=== PATIENT | female | born 2000 | race Caucasian/White ===

== ENCOUNTER → 2019-11-23 06:27 | Outpatient (BNVA) | payer SELFPAY | PROVIDERS: Visit Provider Registered Nurse | DX: R50.9 Fever, unspecified (principal); R68.89 Other general symptoms and signs; E86.0 Dehydration; R06.02 Shortness of breath | CPT/HCPCS: 81000; 87081; 87400; 87880 ==

== ENCOUNTER 2019-11-24 06:15 | Emergency (ER) | payer SELFPAY ==
[2019-11-24 06:22] VITALS: BP 133/83; PULSE 154; RESP 16; TEMP 38.1; O2SAT 100; BMI 18.6
--- NOTE | 2019-11-24 06:25 | XR_ITS ---
WS: [id number] PORTABLE CHEST HISTORY: dyspnea/cough COMPARISON: None available. Lungs are clear and well expanded. No pleural effusion or pneumothorax. Cardiac size: Normal. Mediastinum/Aorta: Normal mediastinum. No osseous abnormality seen. XR/XR chest 1V portable [id number] IMPRESSION: Unremarkable portable chest.
--- NOTE | 2019-11-24 06:26 | CTR_ITS ---
PROCEDURE INFORMATION: Exam: CT Abdomen And Pelvis With Contrast Exam date and time: 11/24/2019 7:04 AM Age: 19 years old Clinical indication: Abdominal pain; Generalized; Additional info: Abdominal pain - lower abd pain x 1 wk with nausea and diarrhea TECHNIQUE: Imaging protocol: Computed tomography of the abdomen and pelvis with intravenous contrast. Total DLP: 533.14 mGy-cm Radiation optimization: All CT scans at this facility use at least one of these dose optimization techniques: automated exposure control; mA and/or kV adjustment per patient size (includes targeted exams where dose is matched to clinical indication); or iterative reconstruction. Contrast material: Omnipaque 300; Contrast volume: 95 ml; Contrast route: IV; COMPARISON: No relevant prior studies available. FINDINGS: Liver: Mild periportal hypoattenuation. Gallbladder and bile ducts: Mild pericholecystic fluid with otherwise normal gallbladder. No gallstones identified. Pancreas: Normal. No ductal dilation. Spleen: Normal. No splenomegaly. Adrenals: Normal. No mass. Kidneys and ureters: See Stomach and bowel finding. Stomach and bowel: Mild wall thickening of the ascending and proximal transverse colon. There is a dilated early opacifying left gonadal vein. Left parauterine vascular collaterals are present also supplying right parauterine collaterals. Appendix: The vermiform appendix is normal. Intraperitoneal space: Mild Morison pouch peritoneal fluid. Nonspecific mild posterior pelvic peritoneal fluid. Vasculature: Unremarkable. No abdominal aortic aneurysm. Lymph nodes: No enlarged lymph nodes. Bladder: The urinary bladder is decompressed and difficult to assess. Reproductive: Left ovarian 2.7 mm lesion containing fat density. Left ovarian 1.8 mm physiologic follicle. Bones/joints: Unremarkable. No acute fracture. Soft tissues: Unremarkable. CT/CT abdomen pelvis w con* [id number] IMPRESSION: 1. Mild wall thickening of the ascending and proximal transverse colon. The finding is consistent with mild nonspecific colitis. Clinical correlation with the patient's specific symptomatology is recommended. 2. Mild periportal hypoattenuation. Differential diagnosis includes acute hepatitis, hypoproteinemia, elevated central venous pressure, bacteremia, recent crystalloid administration and other etiologies. Clinical correlation is recommended. 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 4. Nonspecific mild posterior pelvic peritoneal fluid. 5. 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 Radiation Dose CTDIVOL = (mGy): DLP = 533.14 (mGy-cm)
[2019-11-24 06:50] LABS: Add Urine Microscopic? NO
--- NOTE | 2019-11-24 06:52 | ED_ITS ---
HPI - Abdominal Pain General: Chief Complaint: Abdominal Pain Stated Complaint: temp, fever, cough Time Seen by Provider: 11/24/19 06:25 History of Present Illness: HPI narrative: 19-year-old female presents emergency room with abdominal pain and fever. She also been tachycardic. She was seen by an MEDICAL RECORD CODER in an outlying clinic and given fluids flu swab and urine yesterday all of those were negative per her report. That called ahead concerned about the patient and verbally reported those results as well to the nursing staff. When on arrival patient is complaining of right lower quadrant abdominal pain she relates again about 2-1/2 to 3 days ago was initially periumbilical migrated to the right lower quadrant. Patient denies dysuria urgency or frequency she did have a few loose stools initially she denies any hematochezia melena hematemesis or coffee-ground emesis. Associated Symptoms: Denies bloating, chills, coffee ground emesis, constipation, diarrhea, dysuria, fever(s), hematochezia, hematemesis, melena, nausea and vomiting Review of Systems Const: Denies: fever, chills, body aches, change in appetite, fatigue or malaise ENMT: Denies: throat pain, ear pain, nasal discharge or nasal congestion Card: Denies: chest pain, edema, shortness of breath on exertion or shortness of breath when lying down Resp: Denies: shortness of breath, productive cough or non-productive cough GI: Denies: abdominal pain, nausea, vomiting, vomiting blood, coffee grounds in vomit, diarrhea, constipation, bloating, blood in stool or black tarry stool : Denies: flank pain, difficulty urinating, painful urination, urinary fr equency or urinary urgency Skin/Breast: Denies: rash or itching PFSH ED PFSH: Social History Smoking and tobacco status: never smoked Physical Exam Const: COMMON NORMALS: no apparent distress GENERAL APPEARANCE: cooperative and comfortable ORIENTATION/CONSCIOUSNESS: Yes awake, Yes oriented to person, Yes oriented to place and Yes oriented to time HENMT: COMMON NORMALS: normocephalic, head/scalp atraumatic, hearing grossly normal bilaterally, external ears normal, EAC's normal, TM's normal bilaterally, nasal mucous membranes and turbinates normal, moist oral mucous membranes and oropharynx normal HEAD & SCALP: normocephalic and atraumatic NOSE: nasal mucous membranes and turbinates normal EXTERNAL EAR: Yes external ears normal EXTERNAL AUDITORY CANAL: EAC's normal TYMPANIC MEMBRANE: TM's normal bilaterally Eye: COMMON NORMALS: PERRL, EOMs intact bilaterally, conjunctivae normal and n o scleral icterus CONJUNCTIVA: Yes conjunctivae normal PUPIL: Yes PERRL Neck/C-Spine: COMMON NORMALS: full ROM, no lymphadenopathy, supple and no JVD Lymph: LYMPHATIC: no lymphadenopathy noted and no lymphedema noted Resp: COMMON NORMALS: normal respiratory effort, no retractions, no use of accessory muscles and clear to auscultation bilaterally AUSCULTATION: clear to auscultation bilaterally Cardio: COMMON NORMALS: no JVD, regular rate, regular rhythm and no murmurs RATE: regular rate RHYTHM: regular rhythm GI: COMMON NORMALS: soft to palpation and no hepatosplenomegaly AUSCULTATION: Yes normoactive bowel sounds PALPATION: Yes soft, No tender, No guarding and Yes no hepatosplenomegaly Extremity: COMMON NORMALS: normal to inspection, normal capillary refill, no clubbing, cyanosis or edema, no calf tenderness and no pedal edema Neuro: SENSORIUM/ORIENTATION: Yes oriented to person, Yes oriented to place and Yes oriented to time Skin: COMMON NORMALS: no rashes or lesions noted GENERAL SKIN EXAM: no rashes or lesions noted Course Vital Signs: Vital signs: Vital Signs Temperature 100.6 F H 11/24/19 06:22 Pulse Rate 105 H 11/24/19 10:07 Respiratory Rate 17 11/24/19 10:07 Blood Pressure 119/60 11/24/19 10:07 Pulse Oximetry 98 11/24/19 10:07 MDM - Abdominal Pain MDM Narrative: Medical decision making narrative: CT shows nonspecific colitis. Patient is not had any bloody stools is not recently been on antibiotics. At this point fluids seem to have helped quite a bit working to go ahead and discharge home Tylenol or ibuprofen for her fever recommend clear liquid diet and advance over the next 24 to 48 hours if worsening or change sy mptoms or begin to bloody diarrhea return Lab Data: Labs: Lab Results 11/24/19 11/24/19 11/24/19 Range/Units 06:30 06:42 06:42 WBC 9.6 (4.5-13.0) 10^3/ uL RBC 4.90 (4.1-5.3) 10^6/u L Hgb 13.0 (11.5-15.3) g/dL Hct 40.5 (37.0-47.0) % MCV 82.7 (81-99) fL MCH 26.5 L (28.0-34.0) pg MCHC 32.1 (30.0-36.0) g/dL RDW 12.7 (12.1-15.1) % Plt Count 162 (130-400) 10^3/c mm MPV 9.9 (7.4-10.4) fL Neut % (Auto) 82.4 % Lymph % (Auto) 6.6 % [place] % (Auto) 10.6 % Eos % (Auto) 0.0 % Baso % (Auto) 0.3 % Neut # (Auto) 7.9 (1.8-8.0) 10^3/u L Lymph # (Auto) 0.6 L (1.5-6.5) 10^3/u L [place] # (Auto) 1.0 H (0.2-0.9) 10^3/u L Eos # (Auto) 0.0 (0.0-0.8) 10^3/u L Baso # (Auto) 0.0 (0.0-0.1) 10^3/u L Nucleated RBC % (a uto) 0 % Nucleated RBCs # 0.0 /100WBC Sodium 136 (136-145) mmol/L Potassium 3.6 (3.5-5.1) mmol/L Chloride 99 (98-107) mmol/L Carbon Dioxide 22 (22-29) mmol/L Anion Gap 18.6 (5-19) BUN 11 (6-20) mg/dL Creatinine 0.7 (0.5-0.9) mg/dL GFR Calculation 106.7 (90-130) mL/min Glucose 96 (65-115) mg/dL Calculated Osmolal ity 278 L (285-295) mOsm/k g Calcium 9.5 (8.5-10.5) mg/dL Total Bilirubin 0.4 (0.15-1.2) mg/dL AST 14 (0-32) U/L ALT 9 (0-33) U/L Alkaline Phosphata se 93 (35-105) IU/L Total Protein 7.8 (6.6-8.7) g/dL Albumin 4.4 (3.5-5.2) g/dL Globulin 3.4 (1.3-4.6) g/dL Lipase 16 (13-60) U/L HCG, Qual (Negative) Urine Color (Yellow) Urine Appearance (CLEAR) Urine pH (5-7) Ur Specific Gravit y (1.005-1.030) Urine Protein (Negative) Urine Glucose (UA) (Normal) Urine Ketones (Negative) Urine Blood (Negative) Urine Nitrate (Negative) Urine Bilirubin (NEGATIVE) Urine Urobilinogen (Negative) mg/dL Ur Leukocyte [place] (Negative) Influenza Type A A g Negative (Negative) POC Influenza B Ag Negative (Negative) 11/24/19 11/24/19 Range/Units 06:45 06:45 WBC (4.5-13.0) 10^3/ uL RBC (4.1-5.3) 10^6/u L Hgb (11.5-15.3) g/dL Hct (37.0-47.0) % MCV (81-99) fL MCH (28.0-34.0) pg MCHC (30.0-36.0) g/dL RDW (12.1-15.1) % Plt Count (130-400) 10^3/c mm MPV (7.4-10.4) fL Neut % (Auto) % Lymph % (Auto) % [place] % (Auto) % Eos % (Auto) % Baso % (Auto) % Neut # (Auto) (1.8-8.0) 10^3/u L Lymph # (Auto) (1.5-6.5) 10^3/u L [place] # (Auto) (0.2-0.9) 10^3/u L Eos # (Auto) (0.0-0.8) 10^3/u L Baso # (Auto) (0.0-0.1) 10^3/u L Nucleated RBC % (a uto) % Nucleated RBCs # /100WBC Sodium (136-145) mmol/L Potassium (3.5-5.1) mmol/L Chloride (98-107) mmol/L Carbon Dioxide (22-29) mmol/L Anion Gap (5-19) BUN (6-20) mg/dL Creatinine (0.5-0.9) mg/dL GFR Calculation (90-130) mL/min Glucose (65-115) mg/dL Calculated Osmolal ity (285-295) mOsm/k g Calcium (8.5-10.5) mg/dL Total Bilirubin (0.15-1.2) mg/dL AST (0-32) U/L ALT (0-33) U/L Alkaline Phosphata se (35-105) IU/L Total Protein (6.6-8.7) g/dL Albumin (3.5-5.2) g/dL Globulin (1.3-4.6) g/dL Lipase (13-60) U/L HCG, Qual Negative (Negative) Urine Color Yellow (Yellow) Urine Appearance Clear (CLEAR) Urine pH 5 (5-7) Ur Specific Gravit y 1.015 (1.005-1.030) Urine Protein Neg (Negative) Urine Glucose (UA) Norm (Normal) Urine Ketones 2+ H (Negative) Urine Blood Neg (Negative) Urine Nitrate Negative (Negative) Urine Bilirubin Neg (NEGATIVE) Urine Urobilinogen Norm (Negative) mg/dL Ur Leukocyte [place] Negative (Negative) Influenza Type A A g (Negative) POC Influenza B Ag (Negative) Discharge Plan Discharge Patient Disposition: Home, Self-Care Clinical Impression: Colitis Condition: Stable Prescriptions: New hydrocodone-acetaminophen 5-325 mg tablet 1 tab PO Q6H PRN (Reason: pain) Qty: 15 RF: 0 Zofran 4 mg tablet 4 mg PO Q6H PRN (Reason: nausea and vomiting) Qty: 15 RF: 0 No Action sodium chloride 0.9 % Parenteral Solution 0.09 % IVP ONCE Qty: 1000 RF: 0 Discharge Orders: Discharge Order (Routine); Ordered 11/24/19 Ordered By: Marc Quiros Discharge Diet: Clear Liquid Discharge Activity: Increase activity as tolerated Patient Instructions: Ulcerative Colitis (ED) Discharge Date/Time: 11/24/19 10:08 Coding Level of Care Code ED Residential Living Assistant for Henrryg Alisha
[2019-11-24 06:54] LABS: Basophils % 0.3 %; Hematocrit 40.5 % (37.0-47.0); Lymphocytes # 0.6 10^3/uL (1.5-6.5); Lymphocytes % 6.6 %; Mean Corpuscular HGB Conc 32.1 g/dL (30.0-36.0); Mean Corpuscular Hemoglobin 26.5 pg (28.0-34.0); Mean Corpuscular Volume 82.7 fL (81-99); Mean Platelet Volume 9.9 fL (7.4-10.4); Monocytes % 10.6 %; Neutrophils # 7.9 10^3/uL (1.8-8.0); Neutrophils % 82.4 %; Nucleated Red Blood Cells % 0 %; Platelet Count 162 10^3/cmm (130-400); Red Cell Distribution Width 12.7 % (12.1-15.1); White Blood Count 9.6 10^3/uL (4.5-13.0)
[2019-11-24 06:58] LABS: HCG Qualitative Urine. Negative (Negative)
[2019-11-24] MEDS: sodium chloride 0.9% 1,000 ML 999 ML IV ×2 (07:06→08:02)
[2019-11-24] MEDS: ondansetron 2 mg/ML SDV 2 mL 4 MG IVP ×2 (07:06→09:38)
[2019-11-24 07:08] LABS: Alanine Aminotransferase 9 U/L (0-33); Albumin Level 4.4 g/dL (3.5-5.2); Alkaline Phosphatase 93 IU/L (35-105); Anion Gap 18.6 (5-19); Aspartate Amino Transferase 14 U/L (0-32); Blood Urea Nitrogen 11 mg/dL (6-20); Calcium 9.5 mg/dL (8.5-10.5); Carbon Dioxide 22 mmol/L (22-29); Chloride 99 mmol/L (98-107); Creatinine Clr Calc Pharmacy 114.2343; Globulin 3.4 g/dL (1.3-4.6); Glomerular Filtration Rate 106.7 mL/min (90-130); Glucose 96 mg/dL (65-115); Lipase 16 U/L (13-60); Osmolality Calculated 278 mOsm/kg (285-295); Potassium 3.6 mmol/L (3.5-5.1); Sodium 136 mmol/L (136-145); Total Bilirubin 0.4 mg/dL (0.15-1.2); Total Protein 7.8 g/dL (6.6-8.7)
[2019-11-24 07:08] LABS: Urine Appearance Clear (CLEAR); Urine Color Yellow (Yellow)
[2019-11-24 07:09] LABS: Bilirubin Urine Neg (NEGATIVE); Blood Urine Neg (Negative); Glucose Urine UA Norm (Normal); Ketones Urine 2+ (Negative); Leukocyte Esterase Urine Negative (Negative); Nitrate Urine Negative (Negative); Protein Urine Neg (Negative); Specific Gravity, Urine 1.015 (1.005-1.030); Urobilinogen Urine Norm (Negative); pH Urine 5 (5-7)
[2019-11-24 07:14] LABS: Influenza A by IFA Negative (Negative); Influenza B by IFA Negative (Negative)
[2019-11-24 08:43] VITALS: BP 119/59; PULSE 118; RESP 16; O2SAT 100
[2019-11-24] MEDS: morphine 4 mg/mL SDV 1 mL IVP (09:38)
[2019-11-24] MEDS: sodium chloride 0.9% 500 ML 999 ML IV (09:38)
[2019-11-24 10:07] VITALS: BP 119/60; PULSE 105; RESP 17; O2SAT 98
[2019-11-24] MEDS: iohexol 300 mg/mL 100 mL Btl IV (10:13)
== END 2019-11-24 10:08 | disposition home or self-care (01) ==
PROVIDERS: Emergency Provider Family Medicine
DX: K52.9 Noninfective gastroenteritis and colitis, unspecified (principal)
CPT/HCPCS: 12345; 36415; 71045; 74177; 80053; 81003; 81025; 83690; 85025; 87040; 87804; 96361; 96374; 96375; 96376; 99282; 99284; J2270; J2405; J7030; J7040; Q9967

== ENCOUNTER 2021-07-30 13:12 | Outpatient (CLI) | payer MEDICAID, SELFPAY ==
--- NOTE | 2021-07-30 13:00 | CT_ITS ---
WS: [id number] CT ABDOMEN AND PELVIS NONCONTRAST HISTORY: K52.9 - Noninfective gastroenteritis and colitis, history of colitis. Intermittent low abdom inal pain. TECHNIQUE: Imaging performed through the abdomen and pelvis. Coronal and sagittal reformats are submi tted. All CT scans at [facility] use at least one of these dose optimization techniques: auto mated exposure control; mA and/or kV adjustment per patient size (includes targeted exams where dose is matched to clinical indication); or iterative reconstruction. DLP: 946.18 mGycm COMPARISON: 11/24/2019 Lower thorax: Lungs are clear. Liver: Normal size liver. No mass or bile duct dilatation. Gallbladder: Mildly contracted gallbladder. No stones identified. Pancreas: Normal size and attenuation. Normal pancreatic duct. No pancreatitis or mass. Spleen: Normal. Adrenal glands: Normal. No mass. Right kidney: Normal size kidney with no mass or hydronephrosis. Left kidney: Normal size kidney with no mass or hydronephrosis. Aorta: Normal abdominal aorta, no aneurysm or atherosclerosis. Difficult evaluation for lymph nodes due to no contrast. GI tract: Only a small portion of the appendix is identified but it does appear normal. No GI tract o bstruction. Previously described wall thickening involving the ascending colon has resolved. There is very mild stranding within the fat deep within the pelvis with an adjacent distal small bowel loop w hich is mildly distended with fluid. Abdominal wall: Negative. No hernia. Pelvis: There is a small amount of free fluid in the pelvis. The amount of free fluid is slightly gre ater than physiologic. This could be related to a ruptured ovarian cyst. Osseous structures: Unremarkable. CT/CT abdomen pelvis wo con [id number] IMPRESSION: 1. Distal small bowel loop with mild fluid distention and adjacent fat strandi ng within the pelvis. Very mild inflammatory bowel disease is likely. 2. Previously described wall thickening of the ascending colon and the adjacen t fluid has resolved. 3. Small amount of free fluid within the pelvis. May be postinflammatory or se condary to ruptured ovarian cyst. 4. The appendix is not visualized in its entirety.
== END 2021-07-30 13:13 | disposition home or self-care (01) ==
PROVIDERS: Visit Provider Registered Nurse
DX: K52.9 Noninfective gastroenteritis and colitis, unspecified (principal)
CPT/HCPCS: 74176

== ENCOUNTER → 2022-01-15 11:58 | Outpatient (BNVA) | payer MEDICAID, SELFPAY | PROVIDERS: Visit Provider Registered Nurse | DX: R44.3 Hallucinations, unspecified (principal); F51.12 Insufficient sleep syndrome; K90.49 Malabsorption due to intolerance, not elsewhere classified | CPT/HCPCS: 80053; 82672; 84144; 84443; 85025; 86003 ==

== ENCOUNTER → 2022-03-05 09:14 | Outpatient (BNVA) | payer MEDICAID, SELFPAY | PROVIDERS: Visit Provider Registered Nurse | DX: Z34.90 Encounter for supervision of normal pregnancy, unspecified, unspecified trimester (principal); R11.10 Vomiting, unspecified | CPT/HCPCS: 84702; 85007; 85027 ==

== ENCOUNTER → 2022-12-01 10:33 | Outpatient (BNVA) | payer MEDICAID, SELFPAY | PROVIDERS: PCP Registered Nurse; Visit Provider Registered Nurse | DX: Z34.90 Encounter for supervision of normal pregnancy, unspecified, unspecified trimester (principal); Z3A.01 Less than 8 weeks gestation of pregnancy | CPT/HCPCS: 81025; 84702 ==

== ENCOUNTER 2023-07-03 08:24 | Oncology outpatient (recurring) (ONCR) | payer MEDICAID, SELFPAY ==
[2023-07-03 11:34] VITALS: BP 120/67; PULSE 93; RESP 16; TEMP 37.1; O2SAT 99
[2023-07-03 11:41] VITALS: BP 120/67; PULSE 93; RESP 16; TEMP 37.1; O2SAT 99
== END 2023-07-30 23:59 | disposition home or self-care (01) ==
PROVIDERS: PCP Registered Nurse; Visit Provider Family Medicine
DX: O26.899 Other specified pregnancy related conditions, unspecified trimester (principal); O36.0990 Maternal care for other rhesus isoimmunization, unspecified trimester, not applicable or unspecified; Z29.13 Encounter for prophylactic Rho(D) immune globulin
CPT/HCPCS: 86850; 86900; 90384

== ENCOUNTER 2023-08-07 21:30 | Inpatient (IN) | payer MEDICAID, SELFPAY ==
[2023-08-07 20:46] VITALS: BP 132/82; PULSE 99
[2023-08-07 21:03] VITALS: BP 116/77; PULSE 106
[2023-08-07 21:16] VITALS: BP 121/84; PULSE 106
[2023-08-07 22:43] LABS: Basophils # 0.1 10^3/uL (0.0-0.1); Basophils % 0.4 %; Eosinophils # 0.1 10^3/uL (0.0-0.8); Eosinophils % 0.5 %; Lymphocytes # 2.2 10^3/uL (0.8-4.8); Lymphocytes % 15.9 %; Mean Corpuscular HGB Conc 30.9 g/dL (30-55); Mean Platelet Volume 10.7 fL (7.4-10.4); Monocytes % 7.3 %; Neutrophils # 10.35 10^3/uL (1.8-7.7); Neutrophils % 74.5 %; Nucleated Red Blood Cells % 0 %; Platelet Count 153 10^3/cmm (157-399); Red Blood Count 4.32 10^6/uL (3.85-5.65); Red Cell Distribution Width 14.4 % (12.1-15.1); White Blood Count 13.88 10^3/uL (3.29-11.43)
[2023-08-07 22:49] VITALS: BMI 28.5
[2023-08-08] VITALS (16 sets, daily range): BP systolic 110–144; BP diastolic 62–92; PULSE 80–105; RESP 16–17; TEMP 36.4–37.6; O2SAT 96–99
--- NOTE | 2023-08-08 01:19 | PM.OPHPUD ---
Labor & Delivery H&P Update Date of Procedure: August 08, 2023 Date H&P Performed: 08/06/23 Changes to previous documentation: Upon presentation to the hospital, her cervix was found to be 5 cm dilated. Admission Diagnosis: 23-year-old 3 para 2-0-0-2 at 40 weeks estimated gestational age presenting in active labor Planned procedure: Vaginal delivery Other information: The patient presented to the hospital having contractions that were happening with increased frequency. The contractions were also gradually becoming more painful. She did not have any rupture of membranes. She had no other significant symptoms. Her had been unremarkable. Her lab work had also been relatively unremarkable. Her blood type is O-. Her antibody screen was negative. Her glucose screen was negative. She is GBS negative. She is rubella nonimmune. The remainder of her infectious disease profile was within normal limits. She did have CMV exposure from her son in the third trimester. According to her lab tests it is probable that she did not have significant infection. Related Problem List Diagnoses (1) 40 weeks gestation of : (2) Active labor at term: A&P Assessment and plan (1) 40 weeks gestation of : I anticipate routine labor and a spontaneous vaginal delivery. The patient has expressed desire that we not give her Pitocin . I discussed with her the benefits of Pitocin given routinely after delivery. She understands that there are risks associated with not taking Pitocin, and would like to avoid taking Pitocin regardless, unless there is substantial bleeding. Status: Acute (2) Active labor at term: Status: Acute
--- NOTE | 2023-08-08 01:55 | P.PCNOB_ITS ---
Delivery Note: Date of delivery: August 08, 2023 Pre-delivery diagnoses: 23-year-old 3 para 2-0-0-2 at 40 weeks estimated gestational age presenting in active labor Post-delivery diagnoses: Status post spontaneous vaginal delivery Procedure: Spontaneous vaginal delivery Delivering Physician: Neymar Blevins Estimated blood loss (mL): 150 Pre-Delivery Course: The patient presented to the hospital in active labor. When she arrived to the hospital, her cervix was found to be 5 cm dilated. She gradually increased to 8 cm dilated, at which point an amniotomy was performed. Within 15 minutes, she w as complete and pushing. Delivery: DELIVERY: The patient progressed to complete without difficulty. She delivered a male with a weight of 8 pounds 8 ounces with Apgars of 8, 9. The baby was delivered from the RAFAEL position and placed on the mother's abdomen. The cord was then clamped and cut. There was no nuchal cord. There was no meconium. The placenta and 3 vessel cord were delivered intact shortly thereafter. The perineum and vaginal vault were carefully examined. No lacerations were noted. Both the mother and the baby were in stable condition. Post-Delivery Status: Good History History History 3 Term 3 Miscarriages/Ectopic Living Children 3 A&P Assessment and plan (1) Spontaneous vaginal delivery: I anticipate routine care. (2) 40 weeks gestation of : Coding Level of Care Code Acute Code for Chg Fwd Diagnoses Spontaneous vaginal delivery O80 40 weeks gestation of Z3A.40
[2023-08-08] MEDS: benzocaine-menthol 78 gm Canister 1 SPRAY TOPICAL (03:09)
[2023-08-08] MEDS: ibuprofen 800 mg tablet PO ×4 (03:09→21:51)
[2023-08-08] MEDS: prenatal vitamin Capsule 1 CAP PO (09:04)
[2023-08-08] MEDS: docusate sodium 100 mg Capsule PO ×2 (09:04→21:51)
[2023-08-08 14:02] LABS: Hematocrit 30.1 % (36-47); Mean Corpuscular HGB Conc 31.2 g/dL (30-55); Mean Corpuscular Hemoglobin 25.2 pg (27-33); Mean Corpuscular Volume 80.7 fl (85-98); Mean Platelet Volume 10.7 fL (7.4-10.4); Platelet Count 134 10^3/cmm (157-399); Red Blood Count 3.73 10^6/uL (3.85-5.65); Red Cell Distribution Width 14.5 % (12.1-15.1); White Blood Count 12.27 10^3/uL (3.29-11.43)
[2023-08-09 05:30] VITALS: BP 104/68; PULSE 85; RESP 14; TEMP 36.7; O2SAT 97
[2023-08-09] MEDS: prenatal vitamin Capsule 1 CAP PO (09:07)
[2023-08-09] MEDS: ibuprofen 800 mg tablet PO (09:07)
[2023-08-09 09:08] VITALS: BP 119/68; PULSE 89; RESP 18; TEMP 36.3; O2SAT 98
--- NOTE | 2023-08-09 09:29 | PM.OBGYDC ---
Discharge Providers WAITER/WAITRESS HEAD Date of Admission: 08/07/23 21:30 Date of Discharge: 08/09/23 Attending Provider at Admission: Neymar Blevins MD Attending Provider at Discharge: Neymar Blevins MD Primary Care Provider: JERILYN Hamlin Diagnoses at Discharge Discharge Diagnosis (1) 40 weeks gestation of : Status: Acute (2) Active labor at term: Status: Acute Reason for Visit Reason for Visit: Contractions, Possible ROM Hospital Course Hospital Course The patient presented to the hospital in active labor. Her cervix is 5 cm dilated. An amniotomy was performed. She progressed to complete without difficulty. She had an unremarkable vaginal delivery. Her course was also unremarkable. She breast-fed well. Her bleeding was within normal limits. Her pain was well-controlled. Information Peripartum Data: Infant Delivery Method: Vaginal Physical Exam Narrative: The patient is alert. She appears comfortable. Her heart has a regular rate and rhythm with no murmurs appreciated. Lungs are clear to auscultation bilaterally. Her fundus is firm and below the umbilicus. History History History 3 Term 3 Miscarriages/Ectopic Living Children 3 Discharge Data Studies Completed and Pending Laboratory Results WBC 12.27 10^3/uL (3.29-11.43) H 08/08/23 13:50 RBC 3.73 10^6/uL (3.85-5.65) L 08/08/23 13:50 Hgb 9.40 g/dL (11.27-16.99) L 08/08/23 13:50 Hct 30.1 % (36-47) L 08/08/23 13:50 MCV 80.7 fl (85-98) L 08/08/23 13:50 MCH 25.2 pg (27-33) L 08/08/23 13:50 MCHC 31.2 g/dL (30-55) 08/08/23 13:50 RDW 14.5 % (12.1-15.1) 08/08/23 13:50 Plt Count 134 10^3/cmm (157-399) L 08/08/23 13:50 MPV 10.7 fL (7.4-10.4) H 08/08/23 13:50 Neut % (Auto) 74.5 % 08/07/23 22:24 Lymph % (Auto) 15.9 % 08/07/23 22:24 [place] % (Auto) 7.3 % 08/07/23 22:24 Eos % (Auto) 0.5 % 08/07/23 22:24 Baso % (Auto) 0.4 % 08/07/23 22:24 Neut # (Auto) 10.35 10^3/uL (1.8-7.7) H 08/07/23 22:24 Lymph # (Auto) 2.2 10^3/uL (0.8-4.8) 08/07/23 22:24 [place] # (Auto) 1.0 10^3/uL (0.2-0.9) H 08/07/23 22:24 Eos # (Auto) 0.1 10^3/uL (0.0-0.8) 08/07/23 22:24 Baso # (Auto) 0.1 10^3/uL (0.0-0.1) 08/07/23 22:24 Nucleated RBC % (auto) 0 % 08/07/23 22: Nucleated RBCs # 0.0 /100WBC 08/07/23 22:24 Blood Type O Negative 08/07/23 22:24 Rho(D) Type Negative 08/07/23 22: Antibody Screen Positive 08/07/23 22: Antibody Identification Anti-D 08/07/23 22:24 Screen Negative (Negative) 08/08/23 13:50 Vitals Last Vital Signs Temp 97.4 F L 08/09/23 09:08 Pulse 89 08/09/23 09:08 Resp 18 08/09/23 09:08 BP 119/68 08/09/23 09:08 Pulse Ox 98 08/09/23 09:08 O2 Del Method Room Air 08/09/23 09:08 Results Labs OB ([facility]): Blood Type O Negative 08/07/23 Antibody Screen Positive 08/07/23 Hct 30.1 % (36-47) L 08/08/23 Hgb 9.40 g/dL (11.27-16.99) L 08/08/23 Rho(D) Type Negative 08/07/23 Plt Count 134 10^3/cmm (157-399) L 08/08/23 TSH 0.90 uIU/mL (0.27-4.20) 01/15/22 Progesterone 0.094 ng/mL 01/15/22 Ser , Semi-Qnt 877.40 mIU/mL 12/01/22 HCG, Qual Positive (Negative) H 12/01/22 Discharge Plan Discharge Patient Disposition: Home Condition: Stable Prescriptions: New ibuprofen 800 mg Tablet 800 mg PO TID Qty: 45 0RF -U 106.5-1 mg Capsule 1 cap PO DAILY Qty: 90 2RF Discharge Orders: Discharge Order (Routine); Ordered 08/09/23 Ordered By: Neymar Blevins Referrals: Neymar Blevins MD [Physician] - 6 Weeks Discharge Diet: Usual diet Discharge Activity: Limit activity as instructed Patient Instructions: Opioid Safety Discharge Attestations WAITER/WAITRESS HEAD Time Spent in Discharge Care*: less than 30 min Coding Level of Care Code Acute Code for Chg Fwd Diagnoses 40 weeks gestation of Z3A.40 Active labor at term
[2023-08-09 12:00] VITALS: BP 121/69; PULSE 92; RESP 18; TEMP 36.6; O2SAT 98
== END 2023-08-09 12:28 | disposition home or self-care (01) | DRG 807 ==
LOC: OPOB 21:30 → OBGYN 21:30
PROVIDERS: Admitting Provider Family Medicine; PCP Registered Nurse; Visit Provider Family Medicine
DX: O48.0 Post-term pregnancy (principal); Z37.0 Single live birth; Z3A.40 40 weeks gestation of pregnancy
CPT/HCPCS: 36415; 59025; 59409; 80503; 85025; 85027; 85460; 86850; 86870; 86900; 90384; 99211